=== PATIENT | female | born 1960 | race Caucasian/White ===

== ENCOUNTER 2018-10-23 18:05 | Emergency (ER) | payer MEDICARE ==
[2018-10-23 18:42] LABS: Urine Appearance Cloudy; Urine Bilirubin Negative (Negative); Urine Blood Negative (Negative); Urine Color Amber; Urine Glucose Negative (Negative); Urine Ketones Trace (Negative); Urine Nitrite Negative (Negative); Urine Protein Negative (Negative); Urine Specific Gravity 1.004 (1.010-1.030); Urine Urobilinogen Negative (Negative)
[2018-10-23 19:10] LABS: ABS Lymphocytes 1.7 10^3/ul (1.0-4.8); ABS Monocytes 0.4 10^3/ul (0-0.8); ABS Neutrophils 4.1 10^3/ul (1.5-7.7); Eosinophil % 0.6 %; Hematocrit 39 % (35-47); Hemoglobin 13.3 g/dL (12.0-16.0); Lymphocyte % 26.5 %; Mean Corpuscular HGB Conc 35 g/dL (31-36); Mean Corpuscular Hemoglobin 31 pg (27-31); Mean Corpuscular Volume 91 fL (80-97); Mean Platelet Volume 7.2 fL (7.4-10.4); Platelet Count 245 10^3/uL (150-450); Red Blood Count 4.24 10^6 /uL (3.70-4.87); Red Cell Distribution Width 13 % (10-15); White Blood Count 6.2 10^3/uL (3.5-10.8)
[2018-10-23 19:36] LABS: Albumin 4.2 g/dL (3.2-5.2); Albumin/Globulin Ratio 1.5 (1-3); BUN/Creatinine Ratio 17.3 (8-20); Calcium 10.3 mg/dL (8.6-10.3); EGFR African American 95.7 (>60); EGFR Non-African American 79.1 (>60); Globulin 2.8 g/dL (2-4); Magnesium 2.1 mg/dL (1.9-2.7); Potassium 3.8 mmol/L (3.5-5.0); Total Bilirubin 0.4 mg/dL (0.2-1.0)
[2018-10-23 19:47] LABS: TSH (Thyroid Stimulating Horm) 0.82 mcIU/mL (0.34-5.60)
--- NOTE | 2018-10-23 20:36 | ED ---
Complex/Multi-Sys Presentation - HPI Summary HPI Summary: This patient is a 58 year old F presenting to [facility] with a chief complaint of extreme fatigue since 4 days ago. Pt states she feels she is going to crumble to the floor. She notes she has chronic fatigue syndrome and fibromyalgia since 2008, but does not have a doctor for her fibromyalgia. Pt reports dark mucus, pain of left ear and left side of her face, and coughing. Pt does not take any medications because her body is too sensitive to them. The patient rates the pain 7/10 in severity. Symptoms aggravated by nothing. Symptoms alleviated by nothing. - History Of Current Complaint Chief Complaint: EDWeakness Time Seen by Provider: 10/23/18 20:16 Hx Obtained From: Patient Onset/Duration: Sudden Onset, Lasting Days - 4 Timing: Constant, Days - 4 Severity Currently: Severe Severity Initially: Severe Aggravating Factor(s): nothing Alleviating Factor(s): nothing Associated Signs And Symptoms: Positive: Cough, Other - positive - extreme fatigue, dark mucus, pain of left ear and left side of her face - Allergies/Home Medications Allergies/Adverse Reactions: Allergies Allergy/AdvReac Type Severity Reaction Status Date / Time "everything" Allergy See Comment Uncoded 10/23/18 18:10 PMH/Surg Hx/FS Hx/Imm Hx Previously Healthy: No Sensory History: Denies: Hx Legally Blind EENT History: Denies: Hx Deafness, Hx Hearing Problem Neurological History: Reports: Other Neuro Impairments/Disorders - diagnosed with fibromyalgia 2008 Psychiatric History: Reports: Hx Anxiety - Surgical History Surgical History: Unable to Obtain/Confirm Infectious Disease History: No Infectious Disease History: Denies: Traveled Outside the [place] in Last 30 Days - Family History Known Family History: Positive: None - Social History Alcohol Use: None Hx Substance Use: No Substance Use Type: Reports: None Review of Systems Positive: Fatigue - pt feels she is going to crumble to the floor. ENT: Other - positive - dark mucus, pain of left ear and left side of her face Positive: Cough All Other Systems Reviewed And Are Negative: Yes Physical Exam - Summary Physical Exam Summary: NORMAL PHYSICAL EXAM VITAL SIGNS: Reviewed. GENERAL: Patient is a well-developed and nourished FEMALE who is lying comfortable in the stretcher. Patient is not in any acute respiratory distress. HEAD AND FACE: No signs of trauma. No ecchymosis, hematomas or skull depressions. No sinus tenderness. EYES: PERRLA, EOMI x 2, No injected conjunctiva, no nystagmus. EARS: Hearing grossly intact. Ear canals and tympanic membranes are within normal limits. MOUTH: Oropharynx within normal limits. NECK: Supple, trachea is midline, no adenopathy, no JVD, no carotid bruit, no c- spine tenderness, neck with full ROM CHEST: Symmetric, no tenderness at palpation LUNGS: Clear to auscultation bilaterally. No wheezing or crackles. CVS: Regular rate and rhythm, S1 and S2 present, no murmurs or gallops appreciated. ABDOMEN: Soft, non-tender. No signs of distention. No rebound no guarding, and no masses palpated. Bowel sounds are normal. EXTREMITIES: FROM in all major joints, no edema, no cyanosis or clubbing. NEURO: Alert and oriented x 3. No acute neurological deficits. Speech is normal and follows commands. SKIN: Dry and warm Triage Information Reviewed: Yes Vital Signs On Initial Exam: Initial Vitals Temp Pulse Resp BP Pulse Ox 98.7 F 66 18 159/88 98 10/23/18 18:06 10/23/18 18:06 10/23/18 18:06 10/23/18 18:06 10/23/18 18:06 Vital Signs Reviewed: Yes Diagnostics - Vital Signs Vital Signs Temp Pulse Resp BP Pulse Ox 10/23/18 20:10 98.4 F 64 16 108/64 100 10/23/18 18:06 98.7 F 66 18 159/88 98 - Laboratory Lab Results: Lab Results 10/23/18 10/23/18 10/23/18 Range/Units 18:15 18:31 19:00 WBC 6.2 (3.5-10.8) 10^3/uL RBC 4.24 (3.70-4.87) 10^6 /uL Hgb 13.3 (12.0-16.0) g/dL Hct 39 (35-47) % MCV 91 (80-97) fL MCH 31 (27-31) pg MCHC 35 (31-36) g/dL RDW 13 (10-15) % Plt Count 245 (150-450) 10^3/uL MPV 7.2 L (7.4-10.4) fL Neut % (Auto) 66.0 % Lymph % (Auto) 26.5 % [place] % (Auto) 6.6 % Eos % (Auto) 0.6 % Baso % (Auto) 0.3 % Absolute Neuts (auto) 4.1 (1.5-7.7) 10^3/ul Absolute Lymphs (auto) 1.7 (1.0-4.8) 10^3/ul Absolute Monos (auto) 0.4 (0-0.8) 10^3/ul Absolute Eos (auto) 0.0 (0-0.6) 10^3/ul Absolute Basos (auto) 0.0 (0-0.2) 10^3/ul Absolute Nucleated RBC 0.0 10^3/ul Nucleated RBC % 0.0 Sodium (135-145) mmol/L Potassium (3.5-5.0) mmol/L Chloride (101-111) mmol/L Carbon Dioxide (22-32) mmol/L Anion Gap (2-11) mmol/L BUN (6-24) mg/dL Creatinine (0.51-0.95) mg/dL Est GFR ( Amer) (>60) Est GFR (Non-Af Amer) (>60) BUN/Creatinine Ratio (8-20) Glucose (70-100) mg/dL POC Glucose (mg/dL) 94 (70-100) mg/dL Lactic Acid (0.5-2.0) mmol/L Calcium (8.6-10.3) mg/dL Magnesium (1.9-2.7) mg/dL Total Bilirubin (0.2-1.0) mg/dL AST (13-39) U/L ALT (7-52) U/L Alkaline Phosphatase (34-104) U/L Troponin I (<0.04) ng/mL Total Protein (6.4-8.9) g/dL Albumin (3.2-5.2) g/dL Globulin (2-4) g/dL Albumin/Globulin Ratio (1-3) TSH (0.34-5.60) mcIU/mL Urine Color Kimberly Urine Appearance Cloudy Urine pH 7.0 (5-9) Ur Specific [place] 1.004 L (1.010-1.030) Urine Protein Negative (Negative) Urine Ketones Trace A (Negative) Urine Blood Negative (Negative) Urine Nitrate Negative (Negative) Urine Bilirubin Negative (Negative) Urine Urobilinogen Negative (Negative) Ur Leukocyte Esterase Negative (Negative) Urine Glucose Negative (Negative) Urine Ascorbic Acid * A (Negative) 10/23/18 10/23/18 Range/Units 19:00 19:00 WBC (3.5-10.8) 10^3/uL RBC (3.70-4.87) 10^6 /uL Hgb (12.0-16.0) g/dL Hct (35-47) % MCV (80-97) fL MCH (27-31) pg MCHC (31-36) g/dL RDW (10-15) % Plt Count (150-450) 10^3/uL MPV (7.4-10.4) fL Neut % (Auto) % Lymph % (Auto) % [place] % (Auto) % Eos % (Auto) % Baso % (Auto) % Absolute Neuts (auto) (1.5-7.7) 10^3/ul Absolute Lymphs (auto) (1.0-4.8) 10^3/ul Absolute Monos (auto) (0-0.8) 10^3/ul Absolute Eos (auto) (0-0.6) 10^3/ul Absolute Basos (auto) (0-0.2) 10^3/ul Absolute Nucleated RBC 10^3/ul Nucleated RBC % Sodium 138 (135-145) mmol/L Potassium 3.8 (3.5-5.0) mmol/L Chloride 105 (101-111) mmol/L Carbon Dioxide 25 (22-32) mmol/L Anion Gap 8 (2-11) mmol/L BUN 13 (6-24) mg/dL Creatinine 0.75 (0.51-0.95) mg/dL Est GFR ( Amer) 95.7 (>60) Est GFR (Non-Af Amer) 79.1 (>60) BUN/Creatinine Ratio 17.3 (8-20) Glucose 143 H (70-100) mg/dL POC Glucose (mg/dL) (70-100) mg/dL Lactic Acid 0.8 (0.5-2.0) mmol/L Calcium 10.3 (8.6-10.3) mg/dL Magnesium 2.1 (1.9-2.7) mg/dL Total Bilirubin 0.40 (0.2-1.0) mg/dL AST 19 (13-39) U/L ALT 15 (7-52) U/L Alkaline Phosphatase 47 (34-104) U/L Troponin I 0.00 (<0.04) ng/mL Total Protein 7.0 (6.4-8.9) g/dL Albumin 4.2 (3.2-5.2) g/dL Globulin 2.8 (2-4) g/dL Albumin/Globulin Ratio 1.5 (1-3) TSH 0.82 (0.34-5.60) mcIU/mL Urine Color Urine Appearance Urine pH (5-9) Ur Specific [place] (1.010-1.030) Urine Protein (Negative) Urine Ketones (Negative) Urine Blood (Negative) Urine Nitrate (Negative) Urine Bilirubin (Negative) Urine Urobilinogen (Negative) Ur Leukocyte Esterase (Negative) Urine Glucose (Negative) Urine Ascorbic Acid (Negative) Result Diagrams: 10/23/18 19:00 10/23/18 19:00 Lab Statement: Any lab studies that have been ordered have been reviewed, and results considered in the medical decision making process. Complex Multi-Symp Course/Dx Course Of Treatment: This patient is a 58 year old F presenting to [facility] with a chief complaint of extreme fatigue since 4 days ago. Pt states she feels she is going to crumble to the floor. She notes she has chronic fatigue syndrome and fibromyalgia since 2008, but does not have a doctor for her fibromyalgia. Pt reports dark mucus, pain of left ear and left side of her face, and coughing. Pt does not take any medications because her body is too sensitive to them. The patient rates the pain 7/10 in severity. Symptoms aggravated by nothing. Symptoms alleviated by nothing. Physical exam shows no remarkable findings. Lab results show MPV 7.2, glucose 143, Ur specific gravity 1.004, urine ketones trace A, urine ascorbic acid A. Dx is generalized weakness. Pt is agreeable to discharge. Pt was told to follow up with her primary care provider within 1-2 days and to return to the ED for any new or worsening symptoms. - Diagnoses Provider Diagnoses: Generalized weakness Discharge - Sign-Out/Discharge Documenting (check all that apply): Patient Departure - discharge Patient Received Moderate/Deep Sedation with Procedure: No - Discharge Plan Condition: Stable Disposition: HOME Patient Education Materials: Weakness (ED) Referrals: Bishop Johnson MD [Primary Care Provider] - 1 Day Additional Instructions: Follow up with your primary care provider within 1-2 days. Return to the ED for any new or worsening symptoms. - Attestation Statements Document Initiated by Scribe: Yes Documenting Scribe: Arben Jones Provider For Whom Scribe is Documenting (Include Credential): Dr. Murphy Shelton MD Scribe Attestation: Arben Garcia scribed for Dr. Murphy Shelton MD on 10/23/18 at 2154. Status of Scribe Document: Ready
[2018-10-23 20:52] VITALS: BP 127/67
== END 2018-10-23 20:51 | disposition home or self-care (01) ==
LOC: ED 18:05
DX: R53.1 Weakness (principal)
CPT/HCPCS: 36415; 80053; 81003; 83605; 83735; 84443; 84484; 85025; 99282

== ENCOUNTER 2018-12-17 13:10 | Emergency (ER) | payer MEDICARE ==
--- NOTE | 2018-12-17 13:56 | ED ---
Headache - HPI Summary HPI Summary: The patient is a 58 y/o F presenting to [facility] accompanied by son with a chief complaint of chronic constant diffuse head pressure located behind the ears, eyes, nose, and mouth with intermittent episodes of worsening over the last two days with nausea. 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 She states that she used to take Ativan for her anxiety, but she doesnt take it anymore because it started making her symptoms worse. She uses alternative medicine now including resident care manager, massage therapy, dietary changes, and kinesiology treatment. She last went to the chiropractor at the end of November, which she has mild relief from these symptoms. She has last seen her PCP Dr. Johnson about 7 years ago. She states that yesterday she wasnt feeling well but went to the store, but today she has been unable to do anything secondary to weakness. She additionally c/o neck pain aggravated with speaking secondary to movement of the jaw. She has felt feverish but doesnt have a measured febrile temperature. She has eaten today and was able to ambulate normally then. Last BM was yesterday. Currently, her symptoms are rated 10/10 in severity. PMHx of fibromyalgia. Former smoker, no EtOH, no substance use. Patients medications reviewed. Allergies noted. - History Of Current Complaint Chief Complaint: EDWeakness Stated Complaint: FIBROMYALGIA PAIN PER EMS Time Seen by Provider: 12/17/18 13:26 Hx Obtained From: Patient Onset/Duration: Still Present, Worse Since - two days ago Initially Headache Was: Moderate Currently Pain Is: Current Pain Scale(0-10)= - 10 Timing: Constant Character: Pressure Location of Headache: Diffuse Aggravating Factor: Nothing Allevating Factors: Nothing Associated Signs And Symptoms: Nausea, Fever - sensation of fever without measured, Neck Pain - secondary to movement of jaw with speech - Allergies/Home Medications Allergies/Adverse Reactions: Allergies Allergy/AdvReac Type Severity Reaction Status Date / Time "everything" Allergy See Comment Uncoded 10/23/18 18:10 PMH/Surg Hx/FS Hx/Imm Hx Previously Healthy: Yes Endocrine/Hematology History: Denies: Hx Diabetes Respiratory History: Denies: Hx Asthma Sensory History: Denies: Hx Legally Blind, Hx Deafness, Hx Hearing Problem Opthamlomology History: Denies: Hx Legally Blind Neurological History: Reports: Other Neuro Impairments/Disorders - diagnosed with fibromyalgia 2008 Psychiatric History: Reports: Hx Anxiety - Surgical History Surgical History: Yes Surgery Procedure, Year, and Place: ovarian cyst remobal, tubal ligation, ganglion cyst removal Infectious Disease History: No Infectious Disease History: Denies: Traveled Outside the [place] in Last 30 Days - Family History Known Family History: Positive: Other - prostate cancer in father, Alzheimer's, Non-Contributory Negative: Cardiac Disease, Hypertension, Diabetes - Social History Occupation: Disabled Lives: With Family Alcohol Use: None Hx Substance Use: No Substance Use Type: Reports: None Hx Tobacco Use: No Smoking Status (MU): Former Smoker Review of Systems Positive: Fever - sensation of fever without measurement Positive: Nausea Positive: Other - neck pain with mobing jaw Positive: Headache - diffuse pressure in the head All Other Systems Reviewed And Are Negative: Yes Physical Exam - Summary Physical Exam Summary: Vital Signs Reviewed: Yes A+Ox3, mild discomfort Eyes: Conjunctiva Clear, DANIELLE. EOM intact and full, no photophobia, no nystagmus ENT: Hearing grossly normal TM x 2 clear, mmoist, uvula midline, no exudate, no erythema Neck: Positive: Supple Respiratory: Positive: No respiratory distress, No accessory muscle use + CTA throughout no w/r Cardiovascular: RRR nl s1, s2 no m/r CBT <2 sec abd soft + BS nt/nd no guarding, no distension Musculoskeletal Exam: AMADO x 4 without sustaine SLE > 10 sconds, Full AROM c spine Neurological: Positive: Alert, + sensation throughout Psychological: Positive: Normal Response To united states attorney Skin: Positive: no rash, no ecchymosis Triage Information Reviewed: Yes Vital Signs On Initial Exam: Initial Vitals Pulse Resp BP Pulse Ox 57 13 138/85 100 12/17/18 13:26 12/17/18 13:26 12/17/18 13:26 12/17/18 13:26 Vital Signs Reviewed: Yes - [place] Coma Scale Best Eye Response: 4 - Spontaneous Best Motor Response: 6 - Obeys Commands Best Verbal Response: 5 - Oriented Coma Scale Total: 15 Diagnostics - Vital Signs Vital Signs Temp Pulse Resp BP Pulse Ox 12/17/18 13:29 99.1 F 57 12 138/85 100 12/17/18 13:26 57 13 138/85 100 - Laboratory Result Diagrams: 12/17/18 14:20 12/17/18 14:20 Lab Statement: Any lab studies that have been ordered have been reviewed, and results considered in the medical decision making process. - CT Brain CT CT Interpretation Completed By: Radiologist Summary of CT Findings: Impression: No evidence for acute intracranial abnormality. ED physician has reviewed this report. Maxillofacial CT CT Interpretation Completed By: Radiologist Summary of CT Findings: Impression: 1. Correlate for potential LEFT sphenoid sinusitis. Otherwise negative exam. ED physician has reviewed this report. Re-Evaluation - Re-Evaluation First Eval Re-Evaluation Time: 15:10 Comment: We discussed all lab and imaging results. We spoke about the [facility] [place] referral program with plan for scheduling a follow up appointment. - son will assist her getting to appt Second Eval Re-Evaluation Time: 15:35 Comment: We discussed plan for scheduled appointment tomorrow. She states she does not have an allergy to Penicillin (medical records show allergies to "everything") - will give abx for sinuses. - pt ambulated with walker - will discharge with walker. strict return precautions Headache Course/Dx - Course Course Of Treatment: Pt resents to ED states has progressive weakness, head pressure, pressure behind eyes. Pt able to eat and drink this am, but staes feels frail. VSS. mild facial discomfort with palp. will check CT, labs, urine,. pt declined IV. will reassess and assist with PCP follow-up - Diagnoses Provider Diagnoses: Sinusitis, Weakness - Physician Notifications Discussed Care Of Patient With: Pat - [facility] Physician Referral staff Time Discussed With Above Provider: 15:15 Instructed by Provider To: Other - Pat states she will try to find an appointment for the pt. At 1530, Pat states she has scheduled an appointment for the pt for tomorrow 12/18/[address] Millan and Dr. Aleman at 1445. Discharge ED - Sign-Out/Discharge Documenting (check all that apply): Patient Departure - Patient will be discharged home. Patient Received Moderate/Deep Sedation with Procedure: No - Discharge Plan Condition: Stable Disposition: HOME Prescriptions: Amoxicillin PO (*) [Amoxicillin 500 MG CAP*] 500 mg PO Q12H #20 cap Patient Education Materials: Sinusitis (ED), Weakness (ED) Forms: *Gen. Provider Communication Referrals: Home Care, S [Other] (They will contact you to inform you of day they will begin care.) Wheels, Meals on [Other] (Will contact you with date grapple skidder operator will meet with you to obtain food prefences.) [facility] PHYSICIAN REFERRAL [Outside] Jeanette Aleman DO [Doctor of Osteopathy] - 12/18/18 2:45 pm Rachel Millan MD [Medical Doctor] - 12/18/18 2:45 pm (PLEASE GO TO ADDRESS: [address] [place] [address], [address] ) Additional Instructions: you have an appointment scheduled TOMORROW at the [facility] with Dr. Millan and Dr. Aleman Office location: [address] [place] [address] [address] [phone] Use the walker as provided for stability Take antibiotics 2 times a day as prescribed for your sinus infection Stay well hydrated - frequent sips of water Okay to take Tylenol every 8 hours as needed for pain Keep your appointment as scheduled tomorrow - as discussed today during your visit - social work will be contact you to further evaluate home services Return to the emergency deparment with questions or concerns - Billing Disposition and Condition Condition: STABLE Disposition: Home - Attestation Statements Document Initiated by Scribe: Yes Documenting Scribe: Rhea Salguero Provider For Whom Judy is Documenting (Include Credential): Dr. Cinthia Delgado MD Scribe Attestation: I, sasha Casianoibed for Dr. Cinthia Delgado MD on 12/23/18 at 2025. Scribe Documentation Reviewed: Yes Provider Attestation: The documentation as recorded by the Rhea neves accurately reflects the service I personally performed and the decisions made by me, Dr. Cinthia Delgado MD Status of Scribe Document: Viewed
[2018-12-17] MEDS ORDERED: Ibuprofen TAB* 600 MG PO ONE (14:09)
[2018-12-17 14:55] LABS: Urine Appearance Cloudy; Urine Bilirubin Negative (Negative); Urine Blood Negative (Negative); Urine Color Yellow; Urine Glucose Negative (Negative); Urine Ketones Negative (Negative); Urine Nitrite Negative (Negative); Urine Protein Negative (Negative); Urine Specific Gravity 1.002 (1.010-1.030); Urine Urobilinogen Negative (Negative)
[2018-12-17 14:56] LABS: Albumin 4.2 g/dL (3.2-5.2); Albumin/Globulin Ratio 1.8 (1-3); BUN/Creatinine Ratio 14.8 (8-20); EGFR African American 121.5 (>60); EGFR Non-African American 100.4 (>60); Globulin 2.3 g/dL (2-4); Potassium 3.9 mmol/L (3.5-5.0); Total Bilirubin 0.4 mg/dL (0.2-1.0); Total Protein 6.5 g/dL (6.4-8.9)
[2018-12-17 15:03] LABS: ABS Lymphocytes 1.7 10^3/ul (1.0-4.8); ABS Monocytes 0.3 10^3/ul (0-0.8); ABS Neutrophils 2.8 10^3/ul (1.5-7.7); Eosinophil % 0.4 %; Hematocrit 38 % (35-47); Lymphocyte % 35.7 %; Mean Corpuscular HGB Conc 34 g/dL (31-36); Mean Corpuscular Hemoglobin 31 pg (27-31); Mean Corpuscular Volume 91 fL (80-97); Mean Platelet Volume 7.5 fL (7.4-10.4); Platelet Count 232 10^3/uL (150-450); Red Blood Count 4.19 10^6 /uL (3.70-4.87); Red Cell Distribution Width 14 % (10-15); White Blood Count 4.8 10^3/uL (3.5-10.8)
[2018-12-17 15:35] LABS: TSH (Thyroid Stimulating Horm) 0.72 mcIU/mL (0.34-5.60)
[2018-12-17] MEDS ORDERED: Amoxicillin PO (*) 500 MG CAP PO ONE (15:50)
[2018-12-17] MEDS ORDERED: Amoxicillin PO (*) 250 MG CAP PO ONE (15:53)
[2018-12-17 17:02] VITALS: BP 134/80
== END 2018-12-17 16:28 | disposition home or self-care (01) ==
LOC: ED 13:10
DX: J32.9 Chronic sinusitis, unspecified (principal); R53.1 Weakness; M79.7 Fibromyalgia; F41.9 Anxiety disorder, unspecified; Z87.891 Personal history of nicotine dependence
CPT/HCPCS: 36415; 70450; 70486; 80053; 81003; 83735; 84443; 85025; 99283; A9270-GY